=== PATIENT | male | born 1995 | race Caucasian/White ===

== ENCOUNTER 2018-05-08 18:36 | Emergency (ER) | payer OTHER ==
[2018-05-08] MEDS ORDERED: Silver Sulfadiazine 1% Crm 50 GM Tube TOP ONE (19:33)
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
== END 2018-05-08 19:50 | disposition home or self-care (01) ==
LOC: DL.ED 18:36
DX: T22.111A Burn of first degree of right forearm, initial encounter (principal); X13.1XXA Other contact with steam and other hot vapors, initial encounter
CPT/HCPCS: 16020; 99283; A9270

== ENCOUNTER 2019-08-10 22:53 | Emergency (ER) | payer SELFPAY ==
[2019-08-11] MEDS ORDERED: Ibuprofen 600 MG Tab PO ONE (00:51)
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
== END 2019-08-11 01:01 | disposition home or self-care (01) ==
LOC: DL.ED 22:53
DX: S93.402A Sprain of unspecified ligament of left ankle, initial encounter (principal); W01.0XXA Fall on same level from slipping, tripping and stumbling without subsequent striking against object, initial encounter; X50.1XXA Overexertion from prolonged static or awkward postures, initial encounter
CPT/HCPCS: 73610-LT; 73630-LT; 99283-25; A9270-GY

== ENCOUNTER 2022-11-24 18:44 | Emergency (ER) | payer OTHER, BC | END 2022-11-24 21:17 | disposition home or self-care (01) | LOC: DL.ED 18:44 | DX: S16.1XXA Strain of muscle, fascia and tendon at neck level, initial encounter (principal); S20.212A Contusion of left front wall of thorax, initial encounter; V53.6XXA Passenger in pick-up truck or van injured in collision with car, pick-up truck or van in traffic accident, initial encounter; Y92.410 Unspecified street and highway as the place of occurrence of the external cause | CPT/HCPCS: 71250; 72125; 99284 ==